=== PATIENT | male | born 1990 | race Caucasian/White ===

== ENCOUNTER → 2020-06-23 | Outpatient (CLI) | payer BC ==
--- NOTE | 2020-06-23 10:45 | US ---
EXAMINATION TYPE: US scrotum with doppler. Grayscale and color Doppler Duplex imaging performed of t alberto scrotum. DATE OF EXAM: 06/23/2020 COMPARISON: NONE CLINICAL HISTORY: N50.89 testicular mass. palpable mass on the right testicle, painful, swollen EXAM MEASUREMENTS: TESTICLES: Right Testicle: 5.3 x 3.7 x 3.3 cm, 5.0 x 3.5 x 2.9cm complex lesion seen Left Testicle: 4.8 x 3.3 x 2.4 cm EPIDIDYMIS HEAD: Right Epididymis: 0.8 cm Left Epididymis: 0.7 cm Doppler performed to assess for testicular vascularity; good bilateral color flow and waveforms are s een. There is no evidence of testicular torsion. Presence of hydroceles: no Presence of varicoceles: no IMPRESSION: Complex mass right testicle suspicious for neoplasm.
== END | disposition home or self-care (01) ==
LOC: RADUSWWP 10:08
PROVIDERS: ATTEND Family Medicine
DX: N50.89 Other specified disorders of the male genital organs (principal)
CPT/HCPCS: 76870; 93975

== ENCOUNTER → 2020-07-05 | Outpatient (CLI) | payer BC ==
[2020-07-05 12:32] LABS: Basophils # (A) 0.1 k/uL (0-0.2); Basophils % (A) 1 %; Eosinophils # (A) 0.4 k/uL (0-0.7); Eosinophils % (A) 5 %; HGB 15.4 gm/dL (13.0-17.5); Lymphocytes # (A) 1.3 k/uL (1.0-4.8); Lymphocytes % (A) 15 %; MCH 29.8 pg (25.0-35.0); MCHC 32.8 g/dL (31.0-37.0); MCV 90.9 fL (80.0-100.0); Mean Platelet Volume 7.1; Monocytes # (A) 0.5 k/uL (0-1.0); Monocytes % (A) 6 %; Neutrophils # (A) 6.2 k/uL (1.3-7.7); Neutrophils % (A) 73 %; Platelet Count 278 k/uL (150-450); RBC 5.18 m/uL (4.30-5.90); RDW 13.1 % (11.5-15.5); WBC 8.6 k/uL (3.8-10.6)
[2020-07-05 12:47] LABS: African American GFR (CKD) >90 (>60 ml/min/1.73 sqM); Anion Gap 5 mmol/L; Blood Urea Nitrogen 10 mg/dL (9-20); Calcium 9.4 mg/dL (8.4-10.2); Carbon Dioxide 30 mmol/L (22-30); Chloride 102 mmol/L (98-107); Glucose 126 mg/dL (74-99); LDH 576 U/L (313-618); Non-African American GFR(CKD) >90 (>60 ml/min/1.73 sqM); Potassium 4.3 mmol/L (3.5-5.1); Sodium 137 mmol/L (137-145)
--- NOTE | 2020-07-05 13:07 | XR ---
EXAMINATION TYPE: XR chest 2V DATE OF EXAM: 07/05/2020 COMPARISON: None HISTORY: 29-year-old male D40.10, D41.10,Z01.818 TECHNIQUE: PA and lateral views FINDINGS: The cardiomediastinal silhouette, aorta, and pulmonary vasculature are within normal limits. Patchy d ensities in the left mid and lower lung have a somewhat nodular configuration measuring up to 2.6 cm. Atypical/COVID pneumonia is possible. However, given the patient's testicular mass, metastatic pulmo nary nodules should be excluded. IMPRESSION: Unable to exclude COVID infiltrates versus metastatic pulmonary nodules on the left measuring up to 2 .6 cm. Further clinical correlation advised.
== END | disposition home or self-care (01) ==
LOC: LABPAT 11:23
PROVIDERS: ATTEND Urology
DX: Z01.818 Encounter for other preprocedural examination (principal); D40.11 Neoplasm of uncertain behavior of right testis; R05 Cough
CPT/HCPCS: 36415; 71046; 80048; 82105; 83615; 85025

== ENCOUNTER → 2020-07-13 | Day surgery (SDC) | payer BC ==
[2020-07-12 11:58] VITALS: BMI 26.5
--- NOTE | 2020-07-12 20:29 | P.HPIHPCON ---
History of Present Illness H&P Date: 07/12/20 29 yo male with hx of right sided testicular mass, his scrotal U/S and his exam is concerning for malignancy. Additionally his tumor marker were elevated. I discussed with him given this finding I recommend proceeding with right sided inguinal orchiectomy. Discussed risk of procedure including bleeding, infection, risk from anesthesia. Discussed with him the risk of hypogonadism and diminished fertility, option of sperm banking was discussed. He understood all risk and agreed to proceed with right sided inguinal orchiectomy Consent for Procedure: I have explained the operation/procedure to the patient, including the risks, benefits, side effects, alternative therapies (including not receiving the proposed treatment or service), the likelihood of the patient achieving his/her goals, and potential recuperation problems for the procedure/sedation/analgesia, as well as any blood products, if indicated. I also explained to the patient the risks, benefits and side effects of the alternatives, as well as the risks related to not receiving the proposed procedure, care, treatment, or services. Past Medical History Additional Past Medical History / Comment(s): lump in right testicle, mom & stepdad tested positive for covid >14 days ago, doesn't live w/them, states wasn't around them History of Any Multi-Drug Resistant Organisms: None Reported Past Surgical History: No Surgical Hx Reported Additional Past Anesthesia/Blood Transfusion Reaction / Comment(s): no family problems w/anesthesia, pt. never been sedated Smoking Status: Never smoker - Past Family History Mother Family Medical History: No Reported History Medications and Allergies Home Medications Medication Instructions Recorded Confirmed Type No Known Home Medications 07/12/20 07/12/20 History Allergies Allergy/AdvReac Type Severity Reaction Status Date / Time No Known Allergies Allergy Verified 07/12/20 11:12 Surgical - Exam - General well developed, well nourished, no distress - Eyes PERRL, normal ocular movement - Respiratory normal expansion, normal respiratory effort Assessment and Plan Assessment: 29 yo male with hx of right sided testicular mass -OR for right sided inguinal orchiectomy
[~2020-07-13] MED LIST: BUPIVACAINE (PF) 0.5% 30 ML VIAL SQ ONE; DEXAMETHASONE SOD PHOSPHATE 4 MG/ML 1 ML VIAL IV ONE; GLYCOPYRROLATE 0.2 MG/ML 2 ML VIAL ONE; KETOROLAC 15 MG/ML 1 ML VIAL IVP ONE; LACTATED RINGERS 1,000 ML IV ONE; LACTATED RINGERS 1,000 ML IV SCH; LIDOCAINE 1% (10MG/ML) FOR IV START INTRADERMA PRN; LIDOCAINE 1% INJ 10MG/ML (20 ML MDV) ONE; MIDAZOLAM 2 MG/2 ML VIAL IV PRN; MIDAZOLAM 2 MG/2 ML VIAL ONE; NEOSTIGMINE 1 MG/ML 10 ML VIAL ONE; ONDANSETRON 4 MG/2 ML VIAL IVP ONE; ONDANSETRON 4 MG/2 ML VIAL ONE; PROPOFOL 10 MG/ML 20 ML VIAL IV ONE; ROCURONIUM 10 MG/ML (5 ML VIAL) IV ONE; SUCCINYLCHOLINE CHLORIDE 100 MG/5 ML SYR IV ONE; fentaNYL (PF) 50 MCG/ML 2 ML AMP ONE; traMADol 50 MG TAB ONE; traMADol 50 MG TAB PO ONE
[2020-07-13 14:50] VITALS: TEMP 97.7
[2020-07-13] MEDS: HYDROmorphone 0.5 MG/0.5 ML SYRINGE IVP PRN ×2 (15:07→15:21)
[2020-07-13 16:15] VITALS: RESP 17
[2020-07-13 16:27] VITALS: BP 120/73; PULSE 81
--- NOTE | 2020-07-13 17:09 | P.OP ---
Date of Procedure: 07/13/20 Preoperative Diagnosis: Right-sided testicular mass Postoperative Diagnosis: Same Procedure(s) Performed: Right radical inguinal orchiectomy Implants: None Anesthesia: NILOA Surgeon: Rashard Thomas Estimated Blood Loss (ml): 10 Pathology: other (Right testicle, cord) Condition: stable Disposition: PACU Indications for Procedure: 29 yo male with hx of right sided testicular mass, his scrotal U/S and his exam is concerning for malignancy. Additionally his tumor marker were elevated. I discussed with him given this finding I recommend proceeding with right sided inguinal orchiectomy. Discussed risk of procedure including bleeding, infection, risk from anesthesia. Discussed with him the risk of hypogonadism and diminished fertility, option of sperm banking was discussed. He understood all risk and agreed to proceed with right sided inguinal orchiectomy Description of Procedure: Patient was brought to the operating room he was positioned in the bed in supine position. General anesthesia was induced. Patient was prepped and draped in sterile fashion. An incision was made over the right inguinal crease using a scalpel. Subcutaneous tissue was dissected using electrocautery. Dissection was carried down to the inguinal ring. At this time the testicular cord was identified. The ilioinguinal nerve was identified and dissected away from the cord. At this time the cord was mobilized and a Allen was wrapped around the cord. The testicle was inverted through the scrotum until delivered to the surgical bed. The gubernacular attachment was dissected off of the scrotum and the testicle was no longer adhered to the scrotum. The cord was divided into 2 pockets in each pocket was controlled with 0 silk ties. Hemostasis was achieved using electrocautery. The fascia was closed with 2-0 Vicryl in running fashion. Subcutaneous tissue was closed with 3-0 Vicryl, skin was closed with 4-0 Monocryl and Dermabond was applied. Patient wake up from surgery without complication and taken to the recovery in stable condition
== END | disposition home or self-care (01) ==
LOC: OR 11:52
PROVIDERS: ATTEND Urology
DX: C62.91 Malignant neoplasm of right testis, unspecified whether descended or undescended (principal); Z20.822 Contact with and (suspected) exposure to COVID-19
CPT/HCPCS: 54530; 88342; 88309; 86788; 88341; 87635; J2250; J1100; J2710; J0690; J2405; J2001; J3010; J1885; J0330; J2704; J1170

== ENCOUNTER → 2020-08-05 | Outpatient (CLI) | payer BC ==
[2020-08-05 18:03] LABS: African American GFR (CKD) >90 (>60 ml/min/1.73 sqM); Blood Urea Nitrogen 15 mg/dL (9-20); LDH 365 U/L (313-618); Non-African American GFR(CKD) 80 (>60 ml/min/1.73 sqM)
--- NOTE | 2020-08-06 10:25 | CT ---
EXAMINATION TYPE: CT ChestAbdPelvis w con DATE OF EXAM: 08/05/2020 COMPARISON: None. HISTORY: testicular ca diagnosed [address] DLP: 660.6 mGycm. Automated Exposure Control for Dose Reduction was Utilized. CONTRAST: CT scan of the thorax, abdomen and pelvis is performed with IV Contrast, patient injected with 100 mL of Isovue 300. FINDINGS: LUNGS: Mild to moderate scattered left lung linear scarring and/or atelectasis with some areas of lise nt groundglass opacity. No suspicious nodules or masses. There is no pleural effusion or pneumothorax seen. The tracheobronchial tree is patent. MEDIASTINUM: There are no greater than 1 cm hilar or mediastinal lymph nodes. No cardiomegaly or pe ricardial effusion is seen. There is 4 vessel origin aortic arch which is normal variant . LIVER/GB: Contracted gallbladder. PANCREAS: No significant abnormality is seen. SPLEEN: No significant abnormality is seen. ADRENALS: No significant abnormality is seen. KIDNEYS: No significant abnormality is seen. BOWEL: Oral contrast reaches level of sigmoid colon. No suspicious small or large bowel dilatation. GENITAL ORGANS: No gross abnormality seen. LYMPH NODES: No definitive greater than 1cm abdominal or pelvic lymph nodes are appreciated. Nonspeci fic prominent but subcentimeter right groin lymph node axial image 105 measuring 9 x 8 mm deep to rec tus muscles at site of scarring. Prominent but subcentimeter left periaortic and aortocaval lymph nod es throughout the abdomen noted. OSSEOUS STRUCTURES: No significant abnormality is seen. OTHER: Surgical scar right groin region. Right testicle noted surgically absent in the right scrotum. IMPRESSION: Right testicle surgically absent. Prominent but subcentimeter abdominal and right pelvic lymph nodes. No greater than 1 cm adenopathy or suspicious mass clearly seen.
== END | disposition home or self-care (01) ==
LOC: RADCTMAIN 16:00
PROVIDERS: ATTEND Urology
DX: C62.90 Malignant neoplasm of unspecified testis, unspecified whether descended or undescended (principal); Z90.79 Acquired absence of other genital organ(s)
CPT/HCPCS: 82565; 83615; 84520; 82105; 71260; 74177; 36415; Q9967

== ENCOUNTER → 2020-09-09 | Outpatient (CLI) | payer BC ==
--- NOTE | 2020-09-13 13:22 | PE ---
EXAMINATION TYPE: PET CT fusion skull to thigh DATE OF EXAM: 09/09/2020 COMPARISON: 08/05/2020 chest abdomen pelvis Prior PET/CT: None HISTORY: Testicular cancer TECHNIQUE: Following the intravenous administration of 12.05 mCi of F-18 FDG, whole body images are performed from the skull base to the midthigh. Images are reviewed on the computer in the coronal, a xial, and sagittal planes. Reconstructed rotating images are created on independent workstation and reviewed on the computer. A localization and attenuation correction CT is performed in conjunction with the PET scan. DLP: 476.91 mGycm SCAN: Initial Scan Blood glucose: 97 mg/dL Average Mediastinum SUV: 1.9 Average Liver SUV: 1.63 FINDINGS: NECK: No abnormal uptake THORAX: No abnormal uptake ABDOMEN: No abnormal uptake PELVIS: There is faint uptake within a right inguinal lymph node. This has a maximum SUV value of 16. 5 but averages 0.79. Small metastatic lesion this level is not excluded. No suspicious uptake within the larger intraperitoneal inguinal lymph nodes OSSEOUS STRUCTURES: No abnormal uptake LOCALIZATION CT: Couple of small mediastinal lymph nodes are present in the localization CT. No suspi cious adenopathy within the abdomen is evident. Abnormal adenopathy at the level of the renal arterie s. No paratracheal or retrocaval adenopathy evident. No inguinal or pelvic adenopathy. COMPARISON: Right inguinal Inflammatory changes appear to be improving. IMPRESSION: 1. Subtle focal radiotracer within the right inguinal lymph node is mild increased uptake. There is s ome tiny foci of high intensity. Small metastatic lesion is not excluded. 2. Prominent intraperitoneal lymph node previously identified on the chest abdomen pelvis CT does not appear suspicious based on the PET scan. 3. No more distant suspicious lesions are identified.
== END | disposition home or self-care (01) ==
LOC: RADPETMAIN 13:58
PROVIDERS: ATTEND Internal Medicine Hematology & Oncology
DX: C62.11 Malignant neoplasm of descended right testis (principal)
CPT/HCPCS: 78815; A9552

== ENCOUNTER → 2020-11-01 | Outpatient (CLI) | payer BC ==
--- NOTE | 2020-11-01 11:54 | XR ---
EXAMINATION TYPE: XR chest 2V DATE OF EXAM: 11/01/2020 COMPARISON: Chest x-ray July 05, 2020. CT chest August 05, 2020. PET/CT September 09, 2020 HISTORY: Presurgical study. TECHNIQUE: Frontal and lateral views of the chest are obtained. FINDINGS: There is no suspicious new focal air space opacity, pleural effusion, or pneumothorax seen . The cardiac silhouette size is stable and within normal limits. Prior visualized nodularity left lung on chest x-ray not seen on today's study. The osseous structures are intact. IMPRESSION: No acute cardiopulmonary process currently.
[2020-11-01 12:00] LABS: Basophils # (A) 0.1 k/uL (0-0.2); Basophils % (A) 1 %; Eosinophils # (A) 0.3 k/uL (0-0.7); Eosinophils % (A) 5 %; HCT 47.4 % (39.0-53.0); HGB 16.2 gm/dL (13.0-17.5); Lymphocytes % (A) 29 %; MCH 30.9 pg (25.0-35.0); MCHC 34.1 g/dL (31.0-37.0); MCV 90.5 fL (80.0-100.0); Mean Platelet Volume 7.5; Monocytes # (A) 0.4 k/uL (0-1.0); Monocytes % (A) 6 %; Neutrophils % (A) 58 %; Platelet Count 224 k/uL (150-450); RBC 5.24 m/uL (4.30-5.90); RDW 13.6 % (11.5-15.5); WBC 6.8 k/uL (3.8-10.6)
[2020-11-01 12:11] LABS: ALT 29 U/L (4-49); AST 24 U/L (17-59); African American GFR (CKD) >90 (>60 ml/min/1.73 sqM); Albumin 4.1 g/dL (3.5-5.0); Alkaline Phosphatase 77 U/L (38-126); Anion Gap 8 mmol/L; Blood Urea Nitrogen 10 mg/dL (9-20); Calcium 9.1 mg/dL (8.4-10.2); Carbon Dioxide 26 mmol/L (22-30); Chloride 103 mmol/L (98-107); Glucose 103 mg/dL (74-99); Non-African American GFR(CKD) >90 (>60 ml/min/1.73 sqM); Potassium 4.4 mmol/L (3.5-5.1); Sodium 137 mmol/L (137-145); Total Protein 7.1 g/dL (6.3-8.2)
[2020-11-01 16:22] LABS: Appearance,Urine Clear (Clear); Bilirubin,Urine Negative (Negative); Blood,Urine Negative (Negative); Color,Urine Yellow; Glucose,Urine (UA) Negative (Negative); Ketones,Urine Negative (Negative); Leukocyte Esterase,Urine Negative (Negative); Nitrite,Urine Negative (Negative); PH, Urine 6.5 (5.0-8.0); Protein,Urine Negative (Negative); Specific Gravity,Urine 1.015 (1.001-1.035); Urobilinogen,Urine <2.0 mg/dL (<2.0)
== END | disposition home or self-care (01) ==
LOC: LABPAT 11:15
PROVIDERS: ATTEND Urology
DX: Z01.812 Encounter for preprocedural laboratory examination (principal); C62.11 Malignant neoplasm of descended right testis; R35.0 Frequency of micturition
CPT/HCPCS: 71046; 80053; 81003; 82105; 85025

== ENCOUNTER 2020-11-08 10:20 | Inpatient (IN) | payer BC ==
[2020-11-04 11:08] VITALS: BMI 27.3
--- NOTE | 2020-11-07 20:13 | P.GSHP ---
History of Present Illness H&P Date: 11/07/20 29 yo male, patient of Dr Thomas who underwent a right orchiectomy for a non seminomatous testis mass . The path was 80% embryonal, 15% yolk sac and 5% choriocarcinoma. His initial hcg was 65 and afp 121. they have both normalized. He was given option of surveillance, modified rt rplnd or singe course chemotherapy after he had a negative metastatic work up. He saw dr Wells of oncology who encouraged him the have the rplnd. dr thomas asked me to see him for this surgical procedure. We discussed the surgical procedure including the risks and complications[ bowel obstruction, injury to any adjacent organs, lymphocele, infertility bleeding infection among others]. His fu afp and hcg are normal He comes for a modified right rplnd. The patient is single and does not have children. - Constitutional Constitutional: Denies chills, Denies fever - EENT Eyes: denies blurred vision, denies pain Ears, nose, mouth and throat: Denies headache, Denies sore throat - Cardiovascular Cardiovascular: Denies chest pain, Denies shortness of breath - Respiratory Respiratory: Denies cough, Denies 7 - Gastrointestinal Gastrointestinal: Denies abdominal pain, Denies diarrhea, Denies nausea, Denies vomiting - Genitourinary (Female) Genitourinary: Denies dysuria, Denies hematuria - Genitourinary (Male) Genitourinary: Denies dysuria, Denies hematuria - Musculoskeletal Musculoskeletal: Denies myalgias - Integumentary Integumentary: Denies pruritus, Denies rash - Neurological Neurological: Denies numbness, Denies weakness - Psychiatric Psychiatric: Denies anxiety, Denies depression - Endocrine Endocrine: Denies fatigue, Denies weight change Past Medical History Past Medical History: Asthma, Cancer Additional Past Medical History / Comment(s): hx. testicular cancer, scar tissue on lung per scan-will be seeing pulm. soon, asthma as a kid History of Any Multi-Drug Resistant Organisms: None Reported Past Surgical History: No Surgical Hx Reported Additional Past Surgical History / Comment(s): right radical orchiectomy Past Anesthesia/Blood Transfusion Reactions: Motion Sickness, Postoperative Nausea & Vomiting (PONV) Additional Past Anesthesia/Blood Transfusion Reaction / Comment(s): no family problems w/anesthesia Smoking Status: Never smoker - Past Family History Mother Family Medical History: No Reported History Medications and Allergies Home Medications Medication Instructions Recorded Confirmed Type Ibuprofen 600 mg PO Q8H PRN 11/04/20 11/04/20 History Allergies Allergy/AdvReac Type Severity Reaction Status Date / Time No Known Allergies Allergy Verified 11/04/20 10:38 Surgical - Exam - General well developed, well nourished, no distress - Eyes PERRL - ENT no hearing loss - Neck trachea midline - Respiratory normal expansion, normal respiratory effort - Cardiovascular Rhythm: regular - Abdomen Abdomen: soft, non tender - Genitourinary absent right testicle, normal left testicle normal penis with no external lesions, other - Integumentary no rash, no growths - Neurologic normal coordination, normal sensation - Musculoskeletal normal gait, normal posture - Psychiatric oriented to time, oriented to person, oriented to place, speech is normal, memory intact Results - Imaging CT scan - abdomen: report reviewed, image reviewed CT scan - pelvis: report reviewed, image reviewed Assessment and Plan Assessment: Impression: 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
[2020-11-08] MEDS ORDERED: ONDANSETRON 4 MG/2 ML VIAL ONE (11:09)
[2020-11-08] MEDS ORDERED: ONDANSETRON 4 MG/2 ML VIAL IVP ONE (11:12)
[2020-11-08] MEDS ORDERED: LACTATED RINGERS 1,000 ML IV ONE ×2 (11:12→13:20)
[2020-11-08] MEDS ORDERED: DEXAMETHASONE SOD PHOSPHATE 4 MG/ML 1 ML VIAL IVP ONE (11:13)
[2020-11-08] MEDS ORDERED: SCOPOLAMINE 1.5MG/72HR PATCH TRANSDERM ONE (11:13)
[2020-11-08] MEDS ORDERED: MIDAZOLAM 2 MG/2 ML VIAL IVP ONE (11:35)
[2020-11-08] MEDS ORDERED: fentaNYL (PF) 50 MCG/ML 2 ML AMP IV ONE (11:37)
[2020-11-08] MEDS ORDERED: MIDAZOLAM 2 MG/2 ML VIAL ONE (11:58)
[2020-11-08] MEDS ORDERED: fentaNYL (PF) 50 MCG/ML 2 ML AMP ONE (11:58)
[2020-11-08] MEDS ORDERED: PROPOFOL 10 MG/ML 20 ML VIAL IV ONE (11:58)
[2020-11-08] MEDS ORDERED: PHENYLEPHRINE-0.9% NACL SYG 1,000 MCG/10 ML SYRINGE ONE (11:58)
[2020-11-08] MEDS ORDERED: GLYCOPYRROLATE 0.2 MG/ML 2 ML VIAL ONE (11:58)
[2020-11-08] MEDS ORDERED: SUCCINYLCHOLINE CHLORIDE 100 MG/5 ML SYR IV ONE (11:58)
[2020-11-08] MEDS ORDERED: NEOSTIGMINE 1 MG/ML 10 ML VIAL ONE (11:58)
[2020-11-08] MEDS ORDERED: ROCURONIUM 10 MG/ML (5 ML VIAL) IV ONE (11:58)
[2020-11-08] MEDS ORDERED: LIDOCAINE 1% INJ 10MG/ML (20 ML MDV) ONE (11:58)
[2020-11-08] MEDS ORDERED: NALOXONE 0.4 MG/ML 1 ML VIAL IV PRN (13:22)
[2020-11-08] MEDS ORDERED: diphenhydrAMINE 50 MG/ML 1 ML VIAL IVP PRN (13:22)
[2020-11-08] MEDS ORDERED: ONDANSETRON 4 MG/2 ML VIAL IVP PRN (15:36)
[2020-11-08] MEDS: SODIUM CHLORIDE 0.9% EPIDURAL PRN ×3 (15:40→16:12)
[2020-11-08] MEDS: FENTANYL EPIDURAL PRN ×3 (15:40→16:12)
[2020-11-08] MEDS: ROPIVACAINE EPIDURAL PRN ×3 (15:40→16:12)
--- NOTE | 2020-11-08 15:47 | P.OP ---
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 He has a nonseminomatous testis cancer right with 80% embryonal 15% yolk sac and 5% terato carcinoma. He was given treatment options. His serum markers have normalized postoperatively. We decided to proceed with a modified retroperitoneal lymph node dissection. His computed tomography scan did not show any evidence of metastatic disease Description of Procedure: The patient is brought to the operating suite. He is given epidural followed by general endotracheal anesthesia. Epidurals for intraoperative and postoperative pain control. Jones catheters introduced sterilely. He is prepped and draped sterilely. A midline incision from xiphoid to below the umbilicus is made. The peritoneum was opened. The retroperitoneum was immediately inspected and there is a collection of nodes and the precaval region measuring 5x2 cm. Therefore I'll do a complete dissection. I first opened the retroperitoneum by incising the peritoneum first at the base of the mesentery marching up the left anterior in the right mesentery reflecting the the small bowel superiorly and divided body again. Retraction is made with the Bookwalter retractor. We can see the superior margins of both renal veins and inferiorly down below the sacrum. Laterally we see the right ureter and the small bowel mesentery to the left. We first identify where the gonadal vein on the right side leaves the vena cava. We clamped between 20 ties. We then slowly dissected the gonadal vein all the way to its origin in the right groin where it is transected with a Hemoclip and delivered from the wound. The specimen his right gonadal vessels. I then identify the common iliac vein on the right side and March up lateral to the angie group on the cava and March up the vena cava all the way to the right renal vein incising any tissue and reflecting it laterally. Then identify the ureter and place a vessel loop around it. I marched medial to the ureter up to the right renal vein. An dissect the angie tissue off the psoas muscle using hemoclips and electrocautery were necessary. I delivered this as paracaval lymph nodes. I then moved back to the common a leg vein marching up the vena cava until identify that 2 x 5 cm collection of lymph nodes. Using hemoclips I resect this and delivered separately from the wound. I then continued up the vena cava up to the level of both renal veins. Marched down the medial side of the vena cava and reflect all the tissue off vena cava. Then March up the aorta from the common right leg artery all the way up to the left renal vein. I then go in between the aorta and the cava seen hemoclips remove the lymph node tissue off the posterior body wall. I reflect the cava laterally or the aorta laterally identify lumbar veins and arteries and if necessary taken between ties or hemoclips but I tried to spare them as much as I can. I delivered this lymph angie tissue after squaring it off at the level of the left renal vein. This tissue is inter aortal caval lymph nodes. I then reflect the remaining lymph angie tissue on the aorta laterally. I identified the inferior mesenteric artery and spare it. Move and square of tissue below the left renal vein making sure not to injure the left renal artery. I moved laterally and pushed the ureter laterally marching down the body wall and reflecting lymph angie tissue off the body wall using hemoclips. I do this below the inferior mesenteric artery. Tissue was sent as para-aortic lymph nodes. I then moved to the presacral region using hemoclips and electrocautery removed presacral lymph nodes and sent it as such. I then inspect the bowel and there is no duskiness. I inspect the area of the lymph node dissection and there is no notable lymph leakage nor bleeding. I re- repair Kimberlee lies the retroperitoneum with a running 3-0 chromic. The bowels placed in the abdomen over it is place the omentum. Wound is closed with a double-stranded running 0 PDS from the top to the umbilicus and from below to the umbilicus. The skin is stapled the patient is awake and returned recovery in good condition. Blood loss is approximately 200 mL. The patient is in good condition and extubated. Pending the report as a further recommendations.
--- NOTE | 2020-11-08 16:22 | P.ANPRN ---
Procedure Note - Anesthesia - Epidural/Spinal Epidural Continuous Time Out Performed: Yes Date of Procedure: 11/08/20 Procedure Start Time: 11:40 Procedure Stop Time: 11:49 Location of Patient: PreOp Indication: Acute Post-Operative Pain, Requested by Surgeon Sedation Type: Sedate with meaningful contact maintained Preparation: Sterile Dressing Number of Attempts: 1 Position: Sitting Catheter Depth at Skin (cm): 10 Catheter: Indwelling Needle Guage: 18 Injectate: Test Dose Lidocaine1.5% w/1:200,000 epi Blood Aspirated: No Pain Paresthesia on Injection Noted: No Events: Uneventful and Well Tolerated
[2020-11-08] MEDS ORDERED: HYDROmorphone 0.5 MG/0.5 ML SYRINGE IVP ONE ×3 (16:42→16:57)
[2020-11-08] MEDS: KETOROLAC 15 MG/ML 1 ML VIAL IVP PRN (20:47)
[2020-11-08] MEDS: DEXTROSE 5%-0.45% NACL 1,000 ML IV SCH ×2 (20:49→23:11)
--- NOTE | 2020-11-09 06:57 | P.PN ---
Progress Note - Text Progress Note Date: 11/09/20 Pt seen and examined at bedside. POD #1 s/p open retroperitoneal lymph node dissection with epidural placement for post operative pain control. Patient with improved pain control from yesterday. Today he rates his pain at 4/10. Using oral pain medicine in conjunction with the epidural. He report his left leg being slightly numb from the epidural. Continue rate at 8cc/hr until pain is better controlled. Site is clean and dry without signs of erythema. Patient denies GELLER, F/C, chest pain, dizziness. Will continue to follow.
[2020-11-09] MEDS: DEXTROSE 5%-0.45% NACL 1,000 ML IV SCH ×2 (09:25→15:18)
[2020-11-09 09:27] LABS: Basophils # (A) 0.02 X 10*3/uL (0.00-0.10); Basophils % (A) 0.2 %; Eosinophils # (A) 0.03 X 10*3/uL (0.04-0.35); Eosinophils % (A) 0.3 %; HCT 40.1 % (39.6-50.0); Lymphocytes # (A) 1.18 X 10*3/uL (0.90-5.00); Lymphocytes % (A) 10.5 %; MCH 29.5 pg (27.0-32.0); MCHC 32.4 g/dL (32.0-37.0); MCV 90.9 fL (80.0-97.0); Monocytes % (A) 9.8 %; Neutrophils # (A) 8.85 X 10*3/uL (1.80-7.70); Neutrophils % (A) 78.8 %; Platelet Count 222 X 10*3/uL (140-440); RBC 4.41 X 10*6/uL (4.40-5.60); RDW 13.3 % (11.5-14.5); WBC 11.22 X 10*3/uL (4.50-10.00)
[2020-11-09 10:24] LABS: African American GFR (CKD) 104.6 (60.0-200.0); Albumin 3.4 g/dL (3.80-4.90); Albumin/Globulin Ratio 1.48 (1.60-3.17); Anion Gap 6.9 mmol/L (4.00-12.00); BUN/Creat Ratio 12.73 Ratio (12.00-20.00); Calcium 7.9 mg/dL (8.7-10.3); Carbon Dioxide 27.1 mmol/L (21.6-31.8); Globulin 2.3 g/dL (1.6-3.3); Non-African American GFR(CKD) 90.2 (60.0-200.0); Potassium 4.4 mmol/L (3.5-5.5); Total Bilirubin 2.4 mg/dL (0.2-1.2); Total Protein 5.7 g/dL (6.2-8.2)
--- NOTE | 2020-11-09 11:36 | P.PN ---
Subjective Progress Note Date: 11/09/20 First postoperative day from a full retroperitoneal lymph node dissection for metastatic testicular cancer. There appeared to be a collection of abnormal lymph nodes and the precaval region near the bifurcation. He well overnight. His urine output is good. The epidural is controlling his pain. His abdomen soft. The dressing is dry. His vital signs are stable. His labs are good. I will give the patient some clear liquids. He'll ambulate. Will kidney with the epidural and with incentive spirometry. The pathology visualized intraoperatively was discussed. Pending the surgical pathologist a final recommendations. Objective - Vital Signs Vital signs: Vital Signs Temp 98.3 F 11/09/20 06:48 Pulse 63 11/09/20 06:48 Resp 18 11/09/20 06:48 BP 102/60 11/09/20 06:48 Pulse Ox 98 11/09/20 09:37 Intake & Output 11/08/20 11/09/20 11/09/20 18:59 06:59 18:59 Intake Total 2094 Output Total 450 1600 Balance 1644 -1600 Weight 79.9 kg Intake: IV 1794 Intake, IV Titration 300 Amount Lactated Ringers 1,000 ml 300 @ 0 mls/hr IV .[facility] Rx#:[id number] Output: Urine 250 1600 Estimated Blood Loss 200 Other: Voiding Method Indwelling Catheter Indwelling Catheter Indwelling Catheter - Labs CBC & Chem 7: 11/09/20 05:49 11/09/20 05:49 Labs: Abnormal Lab Results - Last 24 Hours (Table) 11/09/20 11/09/20 Range/Units 05:49 05:49 WBC 11.22 H (4.50-10.00) X 10*3/uL Neutrophils # 8.85 H (1.80-7.70) X 10*3/uL Monocytes # 1.10 H (0.20-1.00) X 10*3/uL Eosinophils # 0.03 L (0.04-0.35) X 10*3/uL Glucose 126 H (70-110) mg/dL Calcium 7.9 L (8.7-10.3) mg/dL Total Bilirubin 2.4 H (0.2-1.2) mg/dL AST 40 H (14-35) U/L ALT 58 H (10-49) U/L Total Protein 5.7 L (6.2-8.2) g/dL Albumin 3.40 L (3.80-4.90) g/dL Albumin/Globulin Ratio 1.48 L (1.60-3.17) g/dL
[2020-11-09] MEDS: FENTANYL EPIDURAL PRN (15:12)
[2020-11-09] MEDS: ROPIVACAINE EPIDURAL PRN (15:12)
[2020-11-09] MEDS: SODIUM CHLORIDE 0.9% EPIDURAL PRN (15:12)
[2020-11-10] MEDS: DEXTROSE 5%-0.45% NACL 1,000 ML IV SCH ×3 (00:29→15:52)
--- NOTE | 2020-11-10 07:47 | P.PN ---
Subjective Progress Note Date: 11/10/20 Second postoperative day from a retroperitoneal lymph node dissection. He continues to do well. His vital signs are stable. His pain is under control. He is afebrile. He is coughing nicely. His wound looks good. I will discontinue his epidural. He will ambulate. He'll be on a regular diet. We'll discontinue his Jones. He will be observed another 24-48 hours assuming he continues to progress. Objective - Vital Signs Vital signs: Vital Signs Temp 98.3 F 11/10/20 06:56 Pulse 75 11/10/20 06:56 Resp 18 11/10/20 06:56 BP 125/67 11/10/20 06:56 Pulse Ox 97 11/10/20 06:56 Intake & Output 11/09/20 11/10/20 11/10/20 18:59 06:59 18:59 Output Total 1100 3800 Balance -1100 -3800 Output: Urine 1100 3800 Other: Voiding Method Indwelling Catheter Indwelling Catheter - Labs CBC & Chem 7: 11/09/20 05:49 11/09/20 05:49 Labs: Abnormal Lab Results - Last 24 Hours (Table) 11/09/20 11/09/20 Range/Units 05:49 05:49 WBC 11.22 H (4.50-10.00) X 10*3/uL Neutrophils # 8.85 H (1.80-7.70) X 10*3/uL Monocytes # 1.10 H (0.20-1.00) X 10*3/uL Eosinophils # 0.03 L (0.04-0.35) X 10*3/uL Glucose 126 H (70-110) mg/dL Calcium 7.9 L (8.7-10.3) mg/dL Total Bilirubin 2.4 H (0.2-1.2) mg/dL AST 40 H (14-35) U/L ALT 58 H (10-49) U/L Total Protein 5.7 L (6.2-8.2) g/dL Albumin 3.40 L (3.80-4.90) g/dL Albumin/Globulin Ratio 1.48 L (1.60-3.17) g/dL
[2020-11-10] MEDS: HYDROcodone/APAP 5-325MG 1 EACH TAB PO PRN ×2 (08:46→19:18)
[2020-11-10] MEDS: KETOROLAC 15 MG/ML 1 ML VIAL IVP PRN ×2 (10:48→23:22)
--- NOTE | 2020-11-10 11:41 | P.PN ---
Progress Note - Text Date: 11/10/2020 Time: 07:14 The patient is status post, retroperitoneal lymph node dissection, postoperative day number 2 The patient has no complaints of nausea vomiting or headache. The patient states he has some left thigh weakness. The epidural is running at[ 10] mL per hour. VAS 3-10. The epidural rate will be decreased to 8 ML's per hour. This is done to try to maintain pain control and decrease the numbness in the patient's left thigh. The epidural will be maintained and adjusted as needed.
[2020-11-10] MEDS: SODIUM CHLORIDE 0.9% 1,000 ML IV SCH (20:34)
[2020-11-11] MEDS: SODIUM CHLORIDE 0.9% 1,000 ML IV SCH (05:33)
--- NOTE | 2020-11-11 07:04 | P.PN ---
Progress Note - Text Progress Note Date: 11/11/20 Patient without complaints. Tolerating clears. Denies headache or weakness. Epidural was discontinued yesterday. Assessment and plan: epidural already discontinuedl
[2020-11-11 08:25] VITALS: RESP 16
[2020-11-11] MEDS: KETOROLAC 15 MG/ML 1 ML VIAL IVP PRN (08:30)
[2020-11-11] MEDS: HYDROcodone/APAP 5-325MG 1 EACH TAB PO PRN ×2 (08:31→16:17)
[2020-11-11 14:13] VITALS: BP 125/73; PULSE 78; TEMP 98.1
--- NOTE | 2020-11-11 14:31 | P.DS ---
Providers Date of admission: 11/08/20 15:33 Attending physician: Laci Law Primary care physician: Pedro Ch MD Hospital Course: The patient is 29. He was admitted the hospital on 11/08/2020 for retroperitoneal lymph node dissection. 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 He underwent a full bilateral retroperitoneal lymph node dissection. Post operatively did well. His vital signs were stable. He had an epidural for pain for the first 48 hours and this controls pain nicely. He was Switched to oral Coffey when he tolerated the pain well with that. Jones catheters removed appropriately he voided without difficulty. His vital signs of been stable postoperatively.. His wound is healing nicely. Today is ready for discharge home care of family regular diet limited activity. His medicines on discharge are Coffey. 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 The rest of the lymph nodes in the full dissection are negative. The patient is in good condition. He will need postoperative chemotherapy. He'll review for back to Dr. Wells. Patient Condition at Discharge: Good Plan - Discharge Summary Discharge Rx Participant: Yes New Discharge Prescriptions: New HYDROcodone/APAP 5-325MG [Coffey 5-325] 1 tab PO Q4HR PRN #14 tab PRN Reason: Pain No Action Ibuprofen 600 mg PO Q8H PRN PRN Reason: Pain Discharge Medication List Ibuprofen 600 mg PO Q8H PRN 11/04/20 [History] HYDROcodone/APAP 5-325MG [Coffey 5-325] 1 tab PO Q4HR PRN #14 tab 11/11/20 [Rx] Follow up Appointment(s)/Referral(s): Laci Law MD [STAFF PHYSICIAN] - 11/17/20 Discharge Disposition: HOME SELF-CARE
== END 2020-11-11 18:30 | disposition home or self-care (01) | DRG 707 ==
LOC: OR 10:20 → 4SSUR 15:23 → OBSVTOIN 15:33 → OR 15:33 → 4SSUR 15:33 → UNDOADMOB 11-09 13:47
PROVIDERS: ADMIT Urology; ATTEND Urology
PROC: 07TC0ZZ Resection of Pelvis Lymphatic, Open Approach (ICD-10-PCS; 2020-11-08)
PROC: 07TD0ZZ Resection of Aortic Lymphatic, Open Approach (ICD-10-PCS; principal; 2020-11-08 11:30)
DX: C62.91 Malignant neoplasm of right testis, unspecified whether descended or undescended (principal); C77.2 Secondary and unspecified malignant neoplasm of intra-abdominal lymph nodes; J45.909 Unspecified asthma, uncomplicated; R20.0 Anesthesia of skin; R53.1 Weakness
CPT/HCPCS: 80053; 84702; 85025; 88307; 94760

== ENCOUNTER → 2021-03-14 | Outpatient (CLI) | payer BC ==
[2021-03-14 14:36] LABS: African American GFR (CKD) >90 (>60 ml/min/1.73 sqM); Blood Urea Nitrogen 12 mg/dL (9-20); Non-African American GFR(CKD) >90 (>60 ml/min/1.73 sqM)
--- NOTE | 2021-03-14 15:46 | CT ---
EXAMINATION TYPE: CT ChestAbdPelvis w con DATE OF EXAM: 03/14/2021 COMPARISON: PET/CT dated 09/09/2020 HISTORY: obs for mets, Testicular cancer. CT DLP: 643.4 mGycm CONTRAST: CT scan of the chest, abdomen and pelvis is performed with Oral Contrast and with IV Contrast, patien t injected with 100 mL of Isovue 300. CT Chest: LUNGS: The lungs are clear and free of infiltrate or atelectasis. No pulmonary nodule or mass is det ected. No pleural effusion or CT evidence of interstitial lung disease. MEDIASTINUM: Thoracic aorta is of normal caliber. The heart is not enlarged. No evidence for media stinal mass or adenopathy. HILAR STRUCTURES: No evidence for mass. No hilar adenopathy is appreciated. OTHER: No significant abnormality. CONTRAST CT ABDOMEN AND PELVIS FINDINGS: LIVER/GB: No calcified gallstones. No space occupying hepatic lesion. Biliary tree is of normal ca liber. PANCREAS: No inflammation. No distinct mass. SPLEEN: No splenic enlargement. No lesion seen. ADRENALS: No nodule. No thickening. KIDNEYS/BLADDER: No hydronephrosis. No nephrolithiasis. No disctinct renal mass. BOWEL: Normal appendix. Normal bowel caliber. No inflammation. GENITAL ORGANS: No gross abnormality. LYMPH NODES: No greater than 1cm abdominal or pelvic lymph nodes are appreciated. AORTA: No significant abnormality. OSSEOUS STRUCTURES: No significant abnormality is seen. OTHER: Multiple retroperitoneal clips noted. IMPRESSION: 1. No evidence for metastatic disease at this time.
== END | disposition home or self-care (01) ==
LOC: RADCTMAIN 13:26
PROVIDERS: ATTEND Internal Medicine Hematology & Oncology
DX: C62.90 Malignant neoplasm of unspecified testis, unspecified whether descended or undescended (principal)
CPT/HCPCS: 82565; 84520; 71260; 74177; 36415; Q9967

== ENCOUNTER → 2021-09-29 | Outpatient (CLI) | payer BC ==
[2021-09-29 09:59] LABS: African American GFR (CKD) >90 (>60 ml/min/1.73 sqM); Blood Urea Nitrogen 15 mg/dL (9-20); Non-African American GFR(CKD) >90 (>60 ml/min/1.73 sqM)
--- NOTE | 2021-09-29 12:33 | CT ---
EXAMINATION TYPE: CT ChestAbdPelvis w con CT DLP: 782.5 mGycm, Automated exposure control for dose reduction was used. DATE OF EXAM: 09/29/2021 11:16 AM COMPARISON: Multiple CTs most recent 06/21/2021. CT/PET 04/08/2020 CLINICAL INDICATION:Male, 30 years old with history of C62.90; obs fro mets, testes CA Technique: Multiple axial images of the chest, abdomen, and pelvis were obtained following the intrav enous administration of 70 mL Isovue-300. Two-dimensional coronal and sagittal reconstructions were o btained. Findings: CHEST: LUNGS/ PLEURA: The lung parenchyma appears unremarkable. AIRWAY: Patent and unremarkable.. HEART: Size within normal limits. MEDIASTINUM: No gross evidence of adenopathy. VASCULATURE: No aortic aneurysm. MUSCULOSKELETAL: No acute osseous abnormalities. SOFT TISSUES/LYMPH NODES: Unremarkable. LOWER NECK: No significant findings. ABDOMEN: ABDOMEN LIVER: Unremarkable GALLBLADDER AND BILE DUCTS: Unremarkable. PANCREAS: Unremarkable. SPLEEN: Unremarkable. ADRENAL GLANDS: Unremarkable. KIDNEYS AND URETERS: No evidence of hydronephrosis or renal calculus. The ureters are unremarkable. PELVIS BLADDER: Unremarkable REPRODUCTIVE: Unremarkable. ABDOMEN & PELVIS STOMACH AND BOWEL: No evidence of bowel obstruction. PERITONEUM: No evidence of pneumoperitoneum or free fluid. Multiples surgical clips are seen througho ut the retroperitoneum, around the aorta and inferior vena cava. There is no evidence for lymphadenop athy within the abdomen or pelvis. VASCULATURE: No evidence of aortic aneurysm. MUSCULOSKELETAL: No acute osseous abnormalities LYMPH NODES: No gross evidence for lymphadenopathy. SOFT TISSUE/ABDOMINAL WALL: Unremarkable IMPRESSION: No evidence for recurrence or metastatic disease.
== END | disposition home or self-care (01) ==
LOC: RADCTMAIN 09:09
PROVIDERS: ATTEND Internal Medicine Hematology & Oncology
DX: C62.90 Malignant neoplasm of unspecified testis, unspecified whether descended or undescended (principal)
CPT/HCPCS: 82565; 84520; 71260; 74177; 36415; Q9967

== ENCOUNTER → 2022-01-15 | Outpatient (CLI) | payer OTHER ==
--- NOTE | 2022-01-15 12:33 | CT ---
EXAMINATION TYPE: CT ChestAbdPelvis w con DATE OF EXAM: 01/15/2022 INDICATION: Follow up to testicular CA COMPARISON: 09/29/2021 CT DLP: 728.5 mGycm CONTRAST: Performed with Oral Contrast and with IV Contrast, patient injected with 70 mL of Isovue 300. TECHNIQUE: Axial images at 5 mm thick sections. Reconstructed images in the coronal plane. Delayed images through the kidneys. FINDINGS: CT CHEST: Portion of the thyroid visualized is normal. No suspicious lung nodules or focal infiltrates are present. No enlarged mediastinal or hilar adenopathy is evident. The ascending aorta diameter at the level of the main pulmonary artery is 2.8 cm. The main pulmonary artery diameter at the bifurcation is 2.[address] ABDOMEN: Liver: Normal Spleen: Normal Pancreas: Normal Adrenal glands: The adrenal glands are normal. Gallbladder: Normal Kidneys: No masses are evident. No hydronephrosis is present. No cysts are present. Delayed images were obtained through the kidneys, which remain unremarkable. Aorta: Vascular calcification is within the aorta. Periaortic surgical clips are present. Inferior vena cava: Normal. CT PELVIS: Diverticular changes are within the sigmoid colon. No acute diverticulitis is evident. There are loop s of bowel which are incompletely distended or lack oral contrast limiting their evaluation. Appendix: Normal as visualized. Urinary bladder: Normal. Genitourinary structures: Prostate is unremarkable Osseous structures: No suspicious lytic or sclerotic lesions are evident. IMPRESSIONS: 1. No suspicious changes to suggest recurrent or metastatic neoplasm
== END | disposition home or self-care (01) ==
LOC: RADCTMAIN 07:48
PROVIDERS: ATTEND Internal Medicine Hematology & Oncology
DX: C62.90 Malignant neoplasm of unspecified testis, unspecified whether descended or undescended (principal); K12.32 Oral mucositis (ulcerative) due to other drugs; Z71.3 Dietary counseling and surveillance
CPT/HCPCS: 71260; 74177; Q9967